=== PATIENT | male | born 1995 | race African-American/Black ===

== ENCOUNTER 2016-12-04 19:58 | Emergency (ER) | payer SELFPAY ==
[~2016-12-04] VITALS: Ht 175.3 cm; Wt 59.0 kg
[2016-12-04 20:43] VITALS: BP 142/88
--- NOTE | 2016-12-04 20:49 | PHYS DOC ---
Past Medical History Past Medical History: Asthma, Kidney Stone Past Surgical History: No Surgical History Alcohol Use: None Drug Use: None Adult General Chief Complaint Chief Complaint: FINGER INJURY [facility] HPI Patient is a 21 year old female presents emergency room with complaint of pain and swelling to his right middle finger caught in a car door yesterday. Patient denies a previous broken bones or dislocations to right middle finger. Patient denies any history of bone forming disorders. Review of Systems Review of Systems Constitutional: Denies fever or chills [] Eyes: Denies change in visual acuity, redness, or eye pain [] HENT: Denies nasal congestion or sore throat [] Respiratory: Denies cough or shortness of breath [] Cardiovascular: No additional information not addressed in HPI [] GI: Denies abdominal pain, nausea, vomiting, bloody stools or diarrhea [] : Denies dysuria or hematuria [] Musculoskeletal: Denies back pain or joint pain [] Integument: Denies rash or skin lesions [] Neurologic: Denies headache, focal weakness or sensory changes [] Endocrine: Denies polyuria or polydipsia [] Allergies Allergies Allergies Coded Allergies Type Severity Reaction Last Updated Verified Sulfa (Sulfonamide Antibiotics) Allergy Intermediate 07/27/15 Yes Physical Exam Physical Exam Constitutional: Well developed, well nourished, no acute distress, non-toxic appearance. [] HENT: Normocephalic, atraumatic, bilateral external ears normal, oropharynx moist, no oral exudates, nose normal. [] Eyes: PERRLA, EOMI, conjunctiva normal, no discharge. [] Neck: Normal range of motion, no tenderness, supple, no stridor. [] Cardiovascular:Heart rate regular rhythm, no murmur [] Lungs & Thorax: Bilateral breath sounds clear to auscultation [] Abdomen: Bowel sounds normal, soft, no tenderness, no masses, no pulsatile masses. [] Skin: Warm, dry, no erythema, no rash. [] Back: No tenderness, no CVA tenderness. [] Extremities: Right middle finger with swelling and ecchymosis to the distal phalanx. There is no subungual hematoma or damage to the nail area there is no broken skin or bleeding. Flexor and extensor function of both the DIPJ PIPJ is preserved. Fingers is neurovascular intact with capillary refill less than 2 seconds. Neurologic: Alert and oriented X 3, normal motor function, normal sensory function, no focal deficits noted. [] Psychologic: Affect normal, judgement normal, mood normal. [] Current Patient Data Vital Signs Vital Signs Date Time Temp Pulse Resp B/P Pulse Ox O2 Delivery O2 Flow Rate FiO2 12/04/16 20:43 97.6 88 18 100 Room Air 97.6 EKG EKG [] Radiology/Procedures Radiology/Procedures 3 views of patient's right middle finger performed with adequate technique. There is evidence of a tuft fracture that is not displaced. Course & Med Decision Making Course & Med Decision Making Patient was placed in aluminum foam splint. He is made aware of his x-ray findings. Dragon Disclaimer Dragon Disclaimer This electronic medical record was generated, in whole or in part, using a voice recognition dictation system. Departure Departure Impression: Primary Impression: Crush injury Additional Impression: Closed fracture of tuft of distal phalanx of finger Disposition: 01 HOME, SELF-CARE Condition: GOOD Referrals: UNKNOWN PCP NAME (PCP) Patient Instructions: Crush Injury, Fingers or Toes, [id number] Additional Instructions: 1. As discussed, a small area of bone call the tuft was broken. 2. Wear the splint during periods of activity for the next 7-10 days. This simply helps protect the end of the finger from getting banged as it will be more sensitive for the next few days. 3. Take the medication as prescribed. You need to also take ibuprofen every 8 hours to help with the swelling. 4. Apply cool packs to the area every 2 hours for 20-30 minutes at a time. 5. Follow-up with a primary care doctor in 2-3 weeks if there are any concerns for your finger. Scripts Hydrocodone/Apap 5-325 ([place] 5-325 Tablet)1 Each Tablet1 Tab PO PRN Q6HRS PRN PAIN #10 TAB Prov:SHITAL BRADSHAW 12/04/16 Problem Qualifiers SHITAL BRADSHAW Dec 04, 2016 20:49
[2016-12-04] MEDS ORDERED: HYDR-971 PO (21:17)
--- NOTE | 2016-12-05 08:24 | RAD ---
Right middle finger, 12/04/2016: History: Injury, pain and swelling No fracture or dislocation is identified. The soft tissues are unremarkable. IMPRESSION: No significant abnormality is detected.
== END 2016-12-04 21:25 | disposition home or self-care (01) ==
LOC: ER 19:58
DX: S62.662A Nondisplaced fracture of distal phalanx of right middle finger, initial encounter for closed fracture (principal); J45.909 Unspecified asthma, uncomplicated; Z88.2 Allergy status to sulfonamides; W23.0XXA Caught, crushed, jammed, or pinched between moving objects, initial encounter; Y93.89 Activity, other specified; Y92.89 Other specified places as the place of occurrence of the external cause; Y99.8 Other external cause status
CPT/HCPCS: 29130; 73140; 99284-25

== ENCOUNTER 2017-04-24 23:16 | Emergency (ER) | payer SELFPAY ==
[~2017-04-24] VITALS: Ht 180.3 cm; Wt 59.0 kg
[~2017-04-24 23:16] MED LIST: HYDR-971 PO
[2017-04-25 01:16] VITALS: BP 122/65
[2017-04-25 02:28] LABS: BASO % 0 % (0-3); EOS % 0 % (0-3); HEMATOCRIT 45.8 % (39.0-53.0); HEMOGLOBIN 15.5 g/dL (13.0-17.5); LYMPH # 1.3 x10^3/uL (1.0-4.8); LYMPH % 14 % (24-48); MEAN CORPUSCULAR HEMOGLOBIN 32 pg (25-35); MEAN CORPUSCULAR HGB CONC 34 g/dL (31-37); MEAN CORPUSCULAR VOLUME 94 fL (79-100); MONO % 9 % (0-9); NEUT % 77 % (31-73); PLATELET COUNT 177 x10^3/uL (140-400); RED BLOOD COUNT 4.85 x10^6/uL (4.30-5.70); RED CELL DISTRIBUTION WIDTH 12.9 % (11.5-14.5); WHITE BLOOD COUNT 9.2 x10^3/uL (4.0-11.0)
[2017-04-25 02:30] LABS: BILIRUBIN,URINE SMALL (NEG); GLUCOSE,URINE NEGATIVE (NEG); NITRITE,URINE NEGATIVE (NEG); PH,URINE 6.5; PROTEIN,URINE NEGATIVE (NEG-TRACE)
[2017-04-25] MEDS ORDERED: LIDO:MAALOX:DONNATAL 1:1:1 15 ML SINGLE DOSE SWSW ONE (02:30)
[2017-04-25] MEDS ORDERED: KETOROLAC 15 MG/ML VIAL. IV ONE (02:30)
[2017-04-25] MEDS ORDERED: ONDANSETRON PF 4 MG/2 ML VIAL. IV ONE (02:30)
[2017-04-25] MEDS ORDERED: IV NORMAL SALINE 1000ML BAG 1,000 ML IV SCH (02:30)
[2017-04-25 02:36] LABS: BACTERIA,URINE 0 /HPF (0-FEW); BARBITURATES NEG (NEG); BENZODIAZEPINES NEG (NEG); CANNABINOIDS NEG (NEG); COCAINE NEG (NEG); METHADONE NEG (NEG); OPIATES NEG (NEG); PHENCYCLIDINE NEG (NEG); RBC,URINE 0 /HPF (0-2); SQUAMOUS EPITHELIAL CELL,UR OCC /LPF; WBC,URINE 0 /HPF (0-4)
[2017-04-25 02:39] LABS: CALCIUM 8.9 mg/dL (8.5-10.1); CREATININE 1.1 mg/dL (0.7-1.3); GFR 102.2; POTASSIUM 3.6 mmol/L (3.5-5.1)
[2017-04-25 02:45] LABS: ALBUMIN/GLOBULIN RATIO 1.1 (1.0-1.7); TOTAL BILIRUBIN 0.6 mg/dL (0.2-1.0); TOTAL PROTEIN 7.5 g/dL (6.4-8.2)
[2017-04-25] MEDS ORDERED: DICY10CA53 PO (03:26)
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
== END 2017-04-25 03:50 | disposition home or self-care (01) ==
LOC: ER 23:16
DX: R10.33 Periumbilical pain (principal); R11.0 Nausea; J45.909 Unspecified asthma, uncomplicated; Z87.442 Personal history of urinary calculi; Z88.2 Allergy status to sulfonamides
CPT/HCPCS: 36415; 74022; 80053; 80307; 81001; 83690; 85027; 96361; 96374; 96375; 99285; J1885; J2405; J7030; G0479